=== PATIENT | male | born 1940 | race Caucasian/White ===

== ENCOUNTER 2018-05-29 06:30 | Day surgery (SDC) | payer MEDICARE, BC ==
[~2018-05-29 06:30] MED LIST: Lactated Ringers 1,000 ML IV SCH
[2018-05-29] MEDS ORDERED: fentaNYL 100 MCG/2 ML SDV ONE (07:31)
[2018-05-29] MEDS ORDERED: Propofol 200 MG/20 ML SDV ONE (07:31)
--- NOTE | 2018-05-29 08:48 | OR ---
DATE OF PROCEDURE: 05/29/2018 PREOPERATIVE DIAGNOSIS: History of colon polyps. POSTOPERATIVE DIAGNOSES: Small hepatic flexure polyp, history of colon polyps. PROCEDURE PERFORMED: Colonoscopy to the cecum with biopsy resection of small hepatic flexure polyp. ANESTHESIA: IV anesthesia with monitored anesthesia care. INDICATION: This 78-year-old white male is referred for a colonoscopy because of a history of colon polyps. He says his last colonoscopic exam was done 5 years ago. I counseled him for the procedure, including risks and alternatives, and he gave his informed consent to proceed. DESCRIPTION OF PROCEDURE: The patient was placed in the left lateral decubitus position. IV anesthesia was administered by the Anesthesia Service. Time-out was held. A rectal exam was performed, which was unremarkable. The flexible video Olympus colonoscope was introduced through his anus, up his rectum and out his colon, all the way to the cecum. Once the cecum was reached, the scope was slowly withdrawn examining the mucosa throughout. At the hepatic flexure, we saw a small polyp, which was removed with a few bites of the biopsy forceps. The scope was withdrawn further with no other lesions noted. The scope was retroflexed in the rectum with the distal rectum appearing unremarkable, except for some minor hemorrhoidal tissue. The scope was straightened and removed. He tolerated the procedure well. Ranyd Sahni MD /[id number]
[2018-05-29 09:10] VITALS: BP 143/92
== END 2018-05-29 10:22 | disposition home or self-care (01) ==
LOC: JP.SDS 06:30
PROVIDERS: ATTEND Surgery
DX: Z12.11 Encounter for screening for malignant neoplasm of colon (principal); D12.3 Benign neoplasm of transverse colon; Z86.010 Personal history of colon polyps; Z79.899 Other long term (current) drug therapy; Z88.5 Allergy status to narcotic agent; Z91.041 Radiographic dye allergy status
CPT/HCPCS: 45380; J2704; J3010; J7120

== ENCOUNTER 2021-03-24 20:22 | Emergency (ER) | payer MEDICARE, BC ==
--- NOTE | 2021-03-24 21:16 | EDM.PDOC ---
ED HPI GENERAL MEDICAL PROBLEM - General Chief Complaint: Neurological Problem Stated Complaint: SPEACH TROUBLE Time Seen by Provider: 03/24/21 21:15 Source of Information: Reports: Patient History Limitations: Reports: No Limitations - History of Present Illness INITIAL COMMENTS - FREE TEXT/NARRATIVE: Patient presents to the ER tonight due to episode of speech change/inability to speak/get the words out. He was over at his son's house for dinner and reports having drank a beer. He states they were sitting around talking and all the sudden he wanted to say something about the neighbor but nothing would come out and he noted he was drooling/salivating. States that symptoms lasted about 30 seconds or less--then completely resolved. Denies any other associated symptoms to include no one-sided weakness, ELMORE, dizzy/lightheadedness, CP/discomfort, SOB/difficulty breathing, N/V, visual changes or symptoms otherwise. He was noted upon arrival to be ambulatory in a normal fashion/manner. He states that he has noted over the last week some mild dragging of his left foot that has increased in nature. He states he plays pickle ball/tennis and normally wears out his left shoe before the right but over the last week he noticed his foot dragging more than normal. He states he used to take an aspirin but quit about a year or so ago--he does state his PCM was not happy about this and would like him to take it but he quit due to bruising PMH--gout, HTN Meds--allopurinol, lisionpril, atenolol Allergies--morphine, iodine Onset: Today, Sudden Duration: Resolved Prior to Arrival - Related Data Allergies Allergy/AdvReac Type Severity Reaction Status Date / Time morphine Allergy Mild Swelling Verified 03/24/21 20:36 iodine Allergy Rash Verified 05/29/18 06:57 ivp dye Allergy Mild rash and Uncoded 05/29/18 06:57 hives Home Meds: Home Meds Atenolol [Tenormin] 50 mg PO DAILY 08/13/13 [History] Lisinopril [Zestril] 10 mg PO DAILY 08/13/13 [History] allopurinoL [Zyloprim] 150 mg PO DAILY 08/13/13 [History] Past Medical History HEENT History: Reports: Cataract, Glaucoma, Impaired Vision, Other (See Below) Other HEENT History: broken nose Cardiovascular History: Reports: Heart Murmur, Hypertension Gastrointestinal History: Reports: Colon Polyp Genitourinary History: Reports: Prostate Disorder, Renal Calculus Musculoskeletal History: Reports: Gout, Other (See Below) Other Musculoskeletal History: cortisone shots and PT for right shoulder Neurological History: Reports: Concussion, Other (See Below) 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 Oncologic (Cancer) History: Reports: Basal Cell Carcinoma, Squamous Cell Carcinoma Dermatologic History: Reports: Other (See Below) Other Dermatologic History: basel and squameous - Infectious Disease History Infectious Disease History: Reports: Chicken Pox, Measles, Mumps - Past Surgical History Cardiovascular Surgical History: Reports: None GI Surgical History: Reports: Colonoscopy, Polypectomy, Other (See Below) Other GI Surgeries/Procedures: hemorroids Male Surgical History: Reports: TURP-Transurethral Resection of Prostate Neurological Surgical History: Reports: Lumbar Spine Musculoskeletal Surgical History: Reports: None Oncologic Surgical History: Reports: Other (See Below) Other Oncologic Surgeries/Procedures: skin Social & Family History - Family History Family Medical History: No Pertinent Family History - Tobacco Use Tobacco Use Status *Q: Never Tobacco User - Caffeine Use Caffeine Use: Reports: Coffee ED ROS GENERAL - Review of Systems Review Of Systems: Comprehensive ROS is negative, except as noted in HPI. Neurological: Reports: Tremors (reports having right hand tremor for over a year ), Trouble Speaking (tonight for about 30 seconds), Difficulty Walking (chronic issue of unknown duration-dragging of left leg/wearing out shoe but over the last week has been increased in nature). Denies: Confusion, Dizziness, Headache, Numbness, Paresthesia, Pre-Existing Deficit, Seizure, Syncope, Tingling ED EXAM, NEURO - Physical Exam Exam: See Below Exam Limited By: No Limitations General Appearance: Alert, WD/WN, No Apparent Distress Eye Exam: Bilateral Eye: EOMI, Normal Inspection, PERRL Ears: Normal External Exam Nose: Normal Inspection Throat/Mouth: Normal Inspection, Normal Lips, Normal Oropharynx, Normal Voice, No Airway Compromise Head Exam: Atraumatic, Normocephalic Neck: Normal Inspection, Supple, Non-Tender, Full Range of Motion. No: Carotid Bruit Respiratory/Chest: No Respiratory Distress, Lungs Clear, Normal Breath Sounds Cardiovascular: Normal Peripheral Pulses, Regular Rate, Rhythm, No Edema, No JVD, No Murmur GI/Abdominal: Normal Bowel Sounds, Soft, Non-Tender (Male) Exam: Deferred Rectal (Males) Exam: Deferred Neurological: Alert, Normal Mood/Affect, Normal Dorsiflexion, CN II-XII Intact, Normal Plantar Flexion, Normal Gait, No Motor/Sensory Deficits, Oriented x 3, Other (NIH=0, rhomberg neg, heel to larry neg, sensory grossly intact bilateral UE/LE, CN 2-12 intact) Back Exam: Normal Inspection, Full Range of Motion Extremities: Normal Inspection, Normal Range of Motion, No Pedal Edema, Normal Capillary Refill Psychiatric: Normal Affect, Normal Mood Skin Exam: Warm, Dry, Intact, Normal Color #1 Interpretation EKG Date: 03/24/21 Time: 21:22 (read at 2125, no STEMI) Rhythm: NSR Rate (Beats/Min): 74 [place]: Normal P-Wave: Enlarged (left atrial enlargement; AL-174) QRS: LBBB (QRS-148) ST-T: Normal QT: Normal (QT/QTc-442/491) Comparison: NA - No Prior EKG (telemetry strip from 05/29/18 noted for L-BBB thus not a new finding) Course - Vital Signs Text/Narrative:: 2129--previous records reviewed as available in the EMR. 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 f/u with PCM as discussed in the next 3-5 days Last Recorded V/S: Last Vital Signs Temp 97.7 F 03/24/21 20:48 Pulse 76 03/24/21 21:03 Resp 15 03/24/21 21:03 BP 131/74 03/24/21 21:03 Pulse Ox 97 03/24/21 21:03 - Orders/Labs/Meds Orders: Active Orders 24 hr Category Date Time Status EKG Documentation Completion [RC] ASDIRECTED Care 03/24/21 21:16 Active EKG 12 Lead [EK] Routine Ther 03/24/21 21:15 Ordered Labs: Laboratory Tests 03/24/21 03/24/21 Range/Units 21:20 21:20 WBC 6.9 (4.5-11.0) K/uL RBC 4.78 (4.30-5.90) M/uL Hgb 14.5 (12.0-15.0) g/dL Hct 45.2 (40.0-54.0) % MCV 95 (80-98) fL MCH 30 (27-31) pg MCHC 32 (32-36) % Plt Count 206 (150-400) K/uL Neut % (Auto) 76 H (36-66) % Lymph % (Auto) 16 L (24-44) % Yell % (Auto) 7 H (2-6) % Eos % (Auto) 0 L (2-4) % Baso % (Auto) 0 (0-1) % Sodium 144 (140-148) mmol/L Potassium 4.4 (3.6-5.2) mmol/L Chloride 104 (100-108) mmol/L Carbon Dioxide 25 (21-32) mmol/L Anion Gap 15.2 H (5.0-14.0) mmol/L BUN 26 H (7-18) mg/dL Creatinine 1.4 H (0.8-1.3) mg/dL Est Cr Clr Drug Dosing 44.19 mL/min Estimated GFR (MDRD) 49 L (>60) Glucose 120 H (74-106) mg/dL Calcium 9.4 (8.5-10.1) mg/dL Total Bilirubin 0.6 (0.2-1.0) mg/dL AST 30 (15-37) U/L ALT 30 (12-78) U/L Alkaline Phosphatase 95 (46-116) U/L Total Protein 7.2 (6.4-8.2) g/dL Albumin 4.2 (3.4-5.0) g/dL Globulin 3.0 (2.3-3.5) g/dL Albumin/Globulin Ratio 1.4 (1.2-2.2) Departure - Departure Time of Disposition: 21:58 Disposition: Home, Self-Care 01 Condition: Good Clinical Impression: TIA (transient ischemic attack), Hypertension, Mild dehydration - Discharge Information *PRESCRIPTION DRUG MONITORING PROGRAM REVIEWED*: Not Applicable *COPY OF PRESCRIPTION DRUG MONITORING REPORT IN PATIENT PITA: Not Applicable Instructions: Transient Ischemic Attack, [id number], Hypertension, Adult, Fczs-[id number], Dehydration, Elderly, [id number] Referrals: Lebron Salmeron MD [Primary Care Provider] - Forms: ED Department Discharge Additional Instructions: Call your family doctor tomorrow to schedule ER follow up care in the next 3-5 days--please note we do not make these appointments for you Consider restarting 1- baby aspirin (81mg tablet) daily due to today's symptoms and as you report your doctor has previously recommended Mild dehydration based on your kidney function test--it is recommended that you increased fluids/water especially when outside working Sepsis Event Note (ED) - Evaluation Sepsis Screening Result: No Definite Risk - Focused Exam Vital Signs: Vital Signs Temp Pulse Resp BP Pulse Ox 03/24/21 21:03 76 15 131/74 97 03/24/21 20:48 97.7 F 78 16 144/74 H 98 03/24/21 20:28 97.7 F 78 16 144/74 H 98 - My Orders Last 24 Hours: My Active Orders 03/24/21 21:15 EKG 12 Lead [EK] Routine 03/24/21 21:16 EKG Documentation Completion [RC] ASDIRECTED - Assessment/Plan Last 24 Hours: My Active Orders 03/24/21 21:15 EKG 12 Lead [EK] Routine 03/24/21 21:16 EKG Documentation Completion [RC] ASDIRECTED
[2021-03-24 21:57] VITALS: BP 118/71; PULSE 74
== END 2021-03-24 22:13 | disposition home or self-care (01) ==
LOC: JP.ED 20:22
DX: G45.9 Transient cerebral ischemic attack, unspecified (principal); I10 Essential (primary) hypertension; E86.0 Dehydration; M10.9 Gout, unspecified; Z79.899 Other long term (current) drug therapy; Z88.5 Allergy status to narcotic agent; Z91.048 Other nonmedicinal substance allergy status
CPT/HCPCS: 36415; 80053; 85025; 93005; 99285-25

== ENCOUNTER 2021-04-27 17:52 | Emergency (ER) | payer MEDICARE, BC ==
[2021-04-27] MEDS ORDERED: Lidocaine/Epineph/Tetracaine 3 ML Syringe TOP ONE (18:21)
[2021-04-27 18:25] VITALS: BP 147/78; PULSE 84
--- NOTE | 2021-04-27 18:30 | EDM.PDOC ---
ED HPI GENERAL MEDICAL PROBLEM - General Chief Complaint: Syncope Stated Complaint: MEDICAL Time Seen by Provider: 04/27/21 18:05 Source of Information: Reports: Patient, EMS, Family History Limitations: Reports: No Limitations - History of Present Illness INITIAL COMMENTS - FREE TEXT/NARRATIVE: 72-year-old male with known carotid artery disease, scheduled for carotid endarterectomy in 3 days was in [place] this morning for preoperative work-up, labs, EKG and physical. They then went shopping, it was a long day. When they got home they unloaded everything from the car and he was just opening a beer and talking to a neighbor when she kept asking him questions and he became nauseous and lightheaded and then fainted. Did not feel palpitations, headache, shortness of breath or peripheral weakness. He sustained a laceration to the lateral right eyebrow and a skin tear on his right elbow but neurologically normalized by the time EMS arrived. Onset: Sudden Duration: Hour(s): (Within the last hour) Associated Symptoms: Reports: Malaise, Syncope, Weakness. Denies: Confusion, Chest Pain, Cough, Fever/Chills, Headaches, Nausea/Vomiting, Shortness of Breath - Related Data Allergies Allergy/AdvReac Type Severity Reaction Status Date / Time morphine Allergy Mild Swelling Verified 04/27/21 18:03 Iodinated Contrast Media Allergy Hives Verified 04/27/21 18:03 iodine Allergy Rash Verified 04/27/21 18:03 Home Meds: Home Meds Lisinopril [Zestril] 10 mg PO DAILY 08/13/13 [History] allopurinoL [Zyloprim] 150 mg PO DAILY 08/13/13 [History] Aspirin [Adult Low Dose Aspirin EC] 81 mg PO DAILY 04/27/21 [History] amLODIPine [Norvasc] 10 mg PO DAILY 04/27/21 [History] Past Medical History HEENT History: Reports: Cataract, Glaucoma, Impaired Vision, Other (See Below) Other HEENT History: broken nose Cardiovascular History: Reports: Heart Murmur, Hypertension Gastrointestinal History: Reports: Colon Polyp Genitourinary History: Reports: Prostate Disorder, Renal Calculus Musculoskeletal History: Reports: Gout, Other (See Below) Other Musculoskeletal History: cortisone shots and PT for right shoulder Neurological History: Reports: Concussion, TIA, Other (See Below) 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 Oncologic (Cancer) History: Reports: Basal Cell Carcinoma, Squamous Cell Carcinoma Dermatologic History: Reports: Other (See Below) Other Dermatologic History: basel and squameous - Infectious Disease History Infectious Disease History: Reports: Chicken Pox, Measles, Mumps - Past Surgical History Cardiovascular Surgical History: Reports: None GI Surgical History: Reports: Colonoscopy, Polypectomy, Other (See Below) Other GI Surgeries/Procedures: hemorroids Male Surgical History: Reports: TURP-Transurethral Resection of Prostate Neurological Surgical History: Reports: Lumbar Spine Musculoskeletal Surgical History: Reports: None Oncologic Surgical History: Reports: Other (See Below) Other Oncologic Surgeries/Procedures: skin Social & Family History - Family History Family Medical History: No Pertinent Family History - Tobacco Use Tobacco Use Status *Q: Former Tobacco User Used Tobacco, but Quit: Yes Month/Year Tobacco Last Used: 1971 - Caffeine Use Caffeine Use: Reports: Coffee - Alcohol Use Number of Drinks Per Day: 1 - Recreational Drug Use Recreational Drug Use: No ED ROS GENERAL - Review of Systems Review Of Systems: See Below Constitutional: Reports: Malaise. Denies: Fever, Chills HEENT: Denies: Vision Change Respiratory: Denies: Shortness of Breath GI/Abdominal: Denies: Nausea, Vomiting Skin: Reports: Other (Laceration of the lateral right eyebrow with periorbital bruising) Neurological: Denies: Headache Psychiatric: Reports: No Symptoms - Physical Exam Exam: See Below Exam Limited By: No Limitations General Appearance: Alert, No Apparent Distress Eye Exam: Right Eye: Periorbital Changes (Patient had significant periorbital ecchymosis especially in the upper eyelid on the right side with a 2 cm laceration just lateral to the eyebrow.), Bilateral Eye: EOMI (No pain with movement of the eye), PERRL, Other (No vision changes, all objective findings are external to the eye) Head Exam: Other (As above) Neck: Supple, Non-Tender Respiratory/Chest: No Respiratory Distress, Lungs Clear Cardiovascular: Regular Rate, Rhythm Neuro Exam (Abbreviated): Alert, Oriented, No Motor/Sensory Deficits Psychiatric: Normal Affect, Normal Mood Skin Exam: Warm, Dry Course - Vital Signs Last Recorded V/S: Last Vital Signs Temp 97.9 F 04/27/21 17:59 Pulse 84 04/27/21 17:59 Resp 14 06/14/21 17:59 BP 147/78 H 04/27/21 17:59 Pulse Ox 97 04/27/21 17:59 - Orders/Labs/Meds Meds: Medications Discontinued Medications Generic Name Dose Route Start Last Admin Trade Name Iza PRN Reason Stop Dose Admin Diphtheria/Tetanus/Acell Pertussis 0.5 ml 04/27/21 19:09 04/27/21 19:15 Diphtheria,Pertussis(Acell),Tetanus Vaccine 0.5 Ml Syringe IM 04/27/21 19:10 0.5 ml .ONCE ONE Administration Ibuprofen 600 mg 04/27/21 19:09 04/27/21 19:14 Ibuprofen 600 Mg Tab PO 04/27/21 19:10 600 mg ONETIME ONE Administration - Re-Assessments/Exams Free Text/Narrative Re-Assessment/Exam: 04/27/21 19:13 Patient was given a Tdap booster, let was applied to the laceration and two 5-0 Ethilon sutures were used to approximate the edges. Unfortunately the patient developed a headache during the procedure, and was given 600 mg of ibuprofen and a CT of the head was ordered. 04/27/21 20:27 Patient remained stable in the emergency room, CT of the head was negative. Sutures can be removed in 5 days, he is going to continue with ice to the area and increase activity as tolerated, he should be able to keep his appointment for for his surgery. He is going to inform his vascular surgeon tomorrow for syncopal episode. Departure - Departure Time of Disposition: 20:44 Disposition: Home, Self-Care 01 Clinical Impression: Vasovagal syncope Laceration of right eyebrow Qualifiers: Encounter type: initial encounter Qualified Code(s): S01.111A - Laceration without foreign body of right eyelid and periocular area, initial encounter - Discharge Information Instructions: Laceration Care, Adult, Syncope, [id number] Referrals: Lebron Salmeron MD [Primary Care Provider] - Forms: ED Department Discharge Care Plan Goals: Drink lots of fluids, avoid alcohol tonight, and continue your regular medications. Call your vascular surgeon tomorrow to update him on what happened, sutures should be removed in 5 days. Unless new symptoms develop, I do not think this will affect your surgery date. Sepsis Event Note (ED) - Evaluation Sepsis Screening Result: No Definite Risk - Focused Exam Vital Signs: Vital Signs Temp Pulse Resp BP Pulse Ox 04/27/21 17:59 97.9 F 84 14 147/78 H 97
[2021-04-27] MEDS ORDERED: Ibuprofen 600 MG Tab PO ONE (19:09)
[2021-04-27] MEDS ORDERED: Diphtheria,Pertussis(Acell),Tetanus Vaccine 0.5 ML Syringe IM ONE (19:09)
--- NOTE | 2021-04-27 20:25 | CRLCT ---
INDICATION: Fall. Injury TECHNIQUE: CT head without contrast. COMPARISON: 04/02/2021 FINDINGS: Again seen is age related cortical atrophy and stable ventriculomegaly. There is no mass effect or midline shift. 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 There is no loss of dahl-white differentiation. There is no evidence of an acute intracranial hemorrhage. No acute calvarial fracture is seen. There is right supraorbital and periorbital soft tissue swelling. The visualized paranasal sinuses and mastoid air cells are clear. The visualized orbits are grossly unremarkable. IMPRESSION: No evidence of an acute intracranial hemorrhage, mass effect or loss of dahl-white differentiation. Stable appearance of the brain. Right supraorbital and periorbital soft tissue swelling. Dictated by Otoniel Prasad MD @ 04/27/2021 8:22:30 PM Please note that all CT scans at this facility use dose modulation, iterative reconstruction, and/or weight-based dosing when appropriate to reduce radiation dose to as low as reasonably achievable. Dictated by: Otoniel Prasad MD @ 04/27/2021 20:24:17 (Electronically Signed)
== END 2021-04-27 20:44 | disposition home or self-care (01) ==
LOC: JP.ED 17:52
DX: S01.111A Laceration without foreign body of right eyelid and periocular area, initial encounter (principal); R55 Syncope and collapse; I10 Essential (primary) hypertension; Z79.82 Long term (current) use of aspirin; Z79.899 Other long term (current) drug therapy; Z88.6 Allergy status to analgesic agent; Z91.041 Radiographic dye allergy status; Z23 Encounter for immunization; W26.8XXA Contact with other sharp object(s), not elsewhere classified, initial encounter
CPT/HCPCS: 12011; 70450; 90471; 90715; 99284; A9270

== ENCOUNTER 2021-05-09 17:57 | Emergency (ER) | payer MEDICARE, BC ==
[2021-05-09] MEDS ORDERED: Sodium Chloride 0.9% 10 ML Syringe FLUSH PRN (18:47)
[2021-05-09] MEDS ORDERED: Sodium Chloride 0.9% 1,000 ML IV SCH (19:00)
--- NOTE | 2021-05-09 19:09 | EDM.PDOC ---
ED HPI GENERAL MEDICAL PROBLEM - General Chief Complaint: Cardiovascular Problem Stated Complaint: NUMBNESS IN FINGERS Time Seen by Provider: 05/09/21 18:19 Source of Information: Reports: Patient, Old Records History Limitations: Reports: No Limitations - History of Present Illness INITIAL COMMENTS - FREE TEXT/NARRATIVE: Janusz is a 81-year-old male who presents to the ED with his for evaluation of acute onset of near syncope associated with numbness in the left second, third, and fourth fingers while at [employer] today. The patient states that he felt somewhat gassy and had an episode of eructation that possibly precipitated his feeling of lightheadedness, dizziness, and the numbness and tingling. The patient did have some nausea. He denies any vision changes. The patient had been standing during part of the sermon when this occurred. He did sit down and started to feel better but his said he was pale and diaphoretic. He denied any tachycardia or palpitations. It was suspected that he had an episode of vasovagal syncope back on 04/27/2021 when he had a episode causing him to "face plant in the ground" resulting in periorbital injury and a laceration above the right eye. The patient recently underwent a right endarterectomy on 04/29/2021 at [facility]. He was seen on 05/02/2021 for recurrence of symptoms similar to today and was [place] air care [place] to [facility] for admission. 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 These were felt to be embolic in nature. Patient was evaluated by neurology who did CT angio of the head and neck which shows postoperative changes of the right carotid endarterectomy without evidence for complication or atheromatous plaques in the left vertebral artery which accounts for least mild stenosis otherwise the remainder of the circulation appeared to be without any significant stenosis below Domínguez was intact. MRI of the brain without contrast showed multiple punctate presumed late acute or early subacute infarcts involving the right frontal, parietal, and posterior temporal lobes and an MRA was ordered showing postoperative changes again in the right carotid artery with no evidence for hemodynamically significant carotid or vertebral artery stenosis and mild irregularity in the right common carotid artery likely postoperative. After full neurologic evaluation, they signed off on him stating he was suitable for discharge home. Patient is on antiplatelet therapy with Plavix and a baby aspirin. The patient was seen by his primary care provider, Dr. Salmeron on 05/08/2021 for hospitalization follow-up. Dr. Salmeron increase his amlodipine from 5 mg to 10 mg yesterday to compensate for the hospital discontinuing the patient's lisinopril. The patient also reports that he really has not been drinking much water since getting out of the hospital. He took a bottle of water with his tackle box to go fishing this morning but did not touch it all day. Early the patient's paresthesias of the left hand are resolved. Have nursing check an orthostatic blood pressure series on him. - Related Data Allergies Allergy/AdvReac Type Severity Reaction Status Date / Time morphine Allergy Mild Swelling Verified 05/09/21 18:16 Iodinated Contrast Media Allergy Hives Verified 05/09/21 18:16 iodine Allergy Rash Verified 05/09/21 18:16 Home Meds: Home Meds allopurinoL [Zyloprim] 150 mg PO DAILY 08/13/13 [History] Aspirin [Adult Low Dose Aspirin EC] 81 mg PO DAILY 04/27/21 [History] amLODIPine [Norvasc] 10 mg PO DAILY 04/27/21 [History] Clopidogrel [Plavix] 1 tab PO DAILY 05/09/21 [History] Past Medical History HEENT History: Reports: Cataract, Glaucoma, Impaired Vision, Other (See Below) Other HEENT History: broken nose Cardiovascular History: Reports: Heart Murmur, Hypertension Gastrointestinal History: Reports: Colon Polyp Genitourinary History: Reports: Prostate Disorder, Renal Calculus Musculoskeletal History: Reports: Gout, Other (See Below) Other Musculoskeletal History: cortisone shots and PT for right shoulder Neurological History: Reports: Concussion, TIA, Other (See Below) 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 Oncologic (Cancer) History: Reports: Basal Cell Carcinoma, Squamous Cell Carcinoma Dermatologic History: Reports: Other (See Below) Other Dermatologic History: basel and squameous - Infectious Disease History Infectious Disease History: Reports: Chicken Pox, Measles, Mumps - Past Surgical History Cardiovascular Surgical History: Reports: None GI Surgical History: Reports: Colonoscopy, Polypectomy, Other (See Below) Other GI Surgeries/Procedures: hemorroids Male Surgical History: Reports: TURP-Transurethral Resection of Prostate Neurological Surgical History: Reports: Lumbar Spine Musculoskeletal Surgical History: Reports: None Oncologic Surgical History: Reports: Other (See Below) Other Oncologic Surgeries/Procedures: skin Social & Family History - Family History Family Medical History: No Pertinent Family History - Tobacco Use Tobacco Use Status *Q: Never Tobacco User - Caffeine Use Caffeine Use: Reports: Coffee ED ROS GENERAL - Review of Systems Review Of Systems: See Below Constitutional: Reports: Weakness (Generalized), Diaphoresis HEENT: Reports: No Symptoms Respiratory: Reports: No Symptoms Cardiovascular: Reports: No Symptoms Endocrine: Reports: No Symptoms GI/Abdominal: Reports: Distension (Abdominal distention with eructation.), Nausea : Reports: No Symptoms Musculoskeletal: Reports: No Symptoms Skin: Reports: No Symptoms Neurological: Reports: Dizziness (Lightheadedness), Paresthesia (Left second, third, and fourth fingers. Similar to when he had his stroke.), Syncope (Near syncope) Psychiatric: Reports: Anxiety Hematologic/Lymphatic: Reports: No Symptoms Immunologic: Reports: No Symptoms ED EXAM, GENERAL - Physical Exam Exam: See Below Exam Limited By: No Limitations General Appearance: Alert, No Apparent Distress, Anxious Eye Exam: Bilateral Eye: EOMI, PERRL Throat/Mouth: Normal Inspection, Normal Oropharynx, Normal Voice, No Airway Compromise Head: Normocephalic, Other (Ecchymosis in the right periorbital space secondary to his fall on 04/27/2021) Neck: Supple, Non-Tender, Full Range of Motion, Other (Healing surgical scar from a right sided endarterectomy). No: Carotid Bruit Respiratory/Chest: No Respiratory Distress, Lungs Clear, Normal Breath Sounds Cardiovascular: Normal Peripheral Pulses, Regular Rate, Rhythm, No Murmur Peripheral Pulses: 2+: Radial (L), Radial (R), Posterior Tibial (L), Posterior Tibial (R) GI/Abdominal: Normal Bowel Sounds, Soft, Non-Tender, Distended (Tympany to percussion throughout the upper abdomen). No: Guarding, Rebound Back Exam: Normal Inspection, Full Range of Motion Extremities: Normal Inspection, Normal Range of Motion Neurological: Alert, Oriented, CN II-XII Intact, Normal Cognition, No Motor/Sensory Deficits Psychiatric: Normal Affect, Normal Mood, Anxious Skin Exam: Warm, Dry, Intact, Ecchymosis (Ecchymosis around the right eye and on the left anterior neck around the surgical wound), Wound/Incision (The right endarterectomy wound is clean, dry, intact) Lymphatic: No Adenopathy #1 Interpretation EKG Date: 05/09/21 Time: 19:12 Rhythm: NSR Rate (Beats/Min): 61 Crestline: LAD-Left Crestline Deviation P-Wave: Enlarged (Left atrial enlargement) QRS: LBBB ST-T: Other (Repolarization abnormality secondary to left bundle branch block) QT: Prolonged Comparison: No Change Course - Vital Signs Last Recorded V/S: Last Vital Signs Temp 36.4 C 05/09/21 18:25 Pulse 71 05/09/21 18:25 Resp 14 05/09/21 18:25 BP 142/78 H 05/09/21 18:25 Pulse Ox 100 05/09/21 18:25 Orthostatic Blood Pressure [ 142/77 Standing] Orthostatic Blood Pressure [ 130/83 Sitting] Orthostatic Blood Pressure [ 151/82 Supine] - Orders/Labs/Meds Orders: Active Orders 24 hr Category Date Time Status EKG Documentation Completion [RC] ASDIRECTED Care 05/09/21 18:48 Active Head wo Cont [CT] Stat Exams 05/09/21 18:47 Taken Sodium Chloride 0.9% [Normal Saline] 1,000 ml Med 05/09/21 19:00 Active IV ASDIRECTED Sodium Chloride 0.9% [Saline Flush] Med 05/09/21 18:47 Active 10 ml FLUSH ASDIRECTED PRN Saline Lock Insert [OM.PC] Routine Oth 05/09/21 18:47 Ordered EKG 12 Lead [EK] Routine Ther 05/09/21 18:47 Ordered Medication Orders Sodium Chloride (Normal Saline) 1,000 mls @ 999 mls/hr IV ASDIRECTED CLARA Last Admin: 05/09/21 19:12 Dose: 999 mls/hr Documented by: ALMAZ Sodium Chloride (Sodium Chloride 0.9% 10 Ml Syringe) 10 ml FLUSH ASDIRECTED PRN PRN Reason: Keep Vein Open Labs: Laboratory Tests 05/09/21 05/09/21 05/09/21 Range/Units 19:04 19:04 19:04 WBC 6.9 (4.5-11.0) K/uL RBC 4.30 (4.30-5.90) M/uL Hgb 13.2 (12.0-15.0) g/dL Hct 40.5 (40.0-54.0) % MCV 94 (80-98) fL MCH 31 (27-31) pg MCHC 33 (32-36) % Plt Count 200 (150-400) K/uL Neut % (Auto) 74.0 H (36-66) % Lymph % (Auto) 15.0 L (24-44) % Dixie % (Auto) 8.0 H (2-6) % Eos % (Auto) 2.6 (2-4) % Baso % (Auto) 0.4 (0-1) % PT 10.8 (9.5-12.0) sec INR 0.99 (0.80-1.20) APTT 23.8 L (27.0-36.0) sec Sodium 141 (140-148) mmol/L Potassium 4.1 (3.6-5.2) mmol/L Chloride 103 (100-108) mmol/L Carbon Dioxide 29 (21-32) mmol/L Anion Gap 9.5 (5.0-14.0) mmol/L BUN 23 H (7-18) mg/dL Creatinine 1.2 (0.8-1.3) mg/dL Est Cr Clr Drug Dosing 49.92 mL/min Estimated GFR (MDRD) 58 L (>60) Glucose 128 H (74-106) mg/dL Calcium 8.8 (8.5-10.1) mg/dL Total Bilirubin 0.6 (0.2-1.0) mg/dL AST 28 (15-37) U/L ALT 46 (12-78) U/L Alkaline Phosphatase 115 (46-116) U/L Total Protein 6.7 (6.4-8.2) g/dL Albumin 3.7 (3.4-5.0) g/dL Globulin 3.0 (2.3-3.5) g/dL Albumin/Globulin Ratio 1.2 (1.2-2.2) Meds: Medications Generic Name Dose Route Start Last Admin Trade Name Freq PRN Reason Stop Dose Admin Sodium Chloride 1,000 mls @ 999 mls/hr 05/09/21 19:00 05/09/21 19:12 Normal Saline IV 999 mls/hr ASDIRECTED CLARA Administration Sodium Chloride 10 ml 05/09/21 18:47 Sodium Chloride 0.9% 10 Ml Syringe FLUSH ASDIRECTED PRN Keep Vein Open - Re-Assessments/Exams Free Text/Narrative Re-Assessment/Exam: 05/09/21 19:39 I reviewed the patient's EKG showing normal sinus rhythm with a rate of 61 bpm and a left bundle branch block. The EKG remains unchanged from previous exams. I reviewed the patient's labs with a CBC showing a hemoglobin of 13.2 with a hematocrit of 40.5, leukocyte count of 6.9 with a normal differential, and platelet count of 200,000. The patient's comprehensive metabolic panel is only significant for a BUN of 23 with a creatinine 1.2. His GFR is calculated at 58. The patient's PT and PTT are both normal. Based on the comprehensive metabolic panel, the patient is somewhat dehydrated. A CT of the brain without contrast was performed demonstrating no evidence for acute bleed, mass, or midline shift. There is evidence for diffuse white matter hypodensity in the periventricular space consistent with small vessel disease. In addition there is age-related atrophy. 05/09/21 20:07 I discussed the case with Dr. Adair from [facility] stroke service who is familiar with the patient from his recent hospitalization. He inquired if we had the ability to do an emergent MRI which we unfortunately do not have the capacity to do. He recommended transferring the patient back to [facility] with the plan for a direct admission to the hospitalist service and obtaining an MRI when he arrives there. We will arrange for transport of the patient to [facility] via ground ambulance. The patient is vitally stable at this time and does not require any special needs. Was discussed with the patient and his who were both in agreement with this plan. Departure - Departure Time of Disposition: 20:10 Disposition: DC/Tfer to Acute Hospital 02 Reason for Transfer *Q: Other (Patient symptoms have resolved) Clinical Impression: TIA (transient ischemic attack), Paresthesias in left hand Referrals: Lebron Salmeron MD [Primary Care Provider] - Forms: ED Department Discharge Sepsis Event Note (ED) - Evaluation Sepsis Screening Result: No Definite Risk - Focused Exam Vital Signs: Vital Signs Temp Pulse Resp BP Pulse Ox 05/09/21 18:25 36.4 C 71 14 142/78 H 100 05/09/21 18:10 36.2 C 65 14 142/78 H 100 - Problem List & Annotations (1) TIA (transient ischemic attack) SNOMED Code(s): 817731115 Code(s): G45.9 - TRANSIENT CEREBRAL ISCHEMIC ATTACK, UNSPECIFIED Status: Acute Priority: High Current Visit: Yes (2) Paresthesias in left hand SNOMED Code(s): 774621806 Code(s): R20.2 - PARESTHESIA OF SKIN Status: Acute Priority: High Current Visit: Yes - Problem List Review Problem List Initiated/Reviewed/Updated: Yes - My Orders Last 24 Hours: My Active Orders 05/09/21 18:47 Head wo Cont [CT] Stat Sodium Chloride 0.9% [Saline Flush] 10 ml FLUSH ASDIRECTED PRN Saline Lock Insert [OM.PC] Routine EKG 12 Lead [EK] Routine 05/09/21 18:48 EKG Documentation Completion [RC] ASDIRECTED 05/09/21 19:00 Sodium Chloride 0.9% [Normal Saline] 1,000 ml IV ASDIRECTED - Assessment/Plan Last 24 Hours: My Active Orders 05/09/21 18:47 Head wo Cont [CT] Stat Sodium Chloride 0.9% [Saline Flush] 10 ml FLUSH ASDIRECTED PRN Saline Lock Insert [OM.PC] Routine EKG 12 Lead [EK] Routine 05/09/21 18:48 EKG Documentation Completion [RC] ASDIRECTED 05/09/21 19:00 Sodium Chloride 0.9% [Normal Saline] 1,000 ml IV ASDIRECTED
--- NOTE | 2021-05-09 20:44 | CRLCT ---
For Patients: As a result of the Century Cures Act, medical imaging exams and procedure reports are released immediately into your electronic medical record. You may view this report before your referring provider. If you have questions, please contact your health care provider. DATE: 05/09/2021 CLINICAL HISTORY: Patient with lightheadedness, recent stroke and endarterectomy. TECHNIQUE: Standard CT scanning of the head was performed. COMPARISON: 04/27/2021 FINDINGS: There is no intracranial hemorrhage. There is an old lacunar infarct in the right caudate head and anterior limb of the internal capsule. There is no territorial infarction. There are moderate microangiopathic changes. There is diffuse parenchymal volume loss. There is no mass effect or midline shift. The calvarium is unremarkable. The orbits are unremarkable. The paranasal sinuses are unremarkable. The mastoid air cells are unremarkable. The soft tissues are unremarkable. IMPRESSION: 1. No intracranial hemorrhage or territorial infarction. 2. Old lacunar infarct in the right caudate head and anterior limb of the internal capsule. 3. Moderate microangiopathic changes and diffuse parenchymal volume loss. Please note that all CT scans at this facility use dose modulation, iterative reconstruction, and/or weight-based dosing when appropriate to reduce radiation dose to as low as reasonably achievable. Dictated by Mala Blackwell MD @ 05/09/2021 8:42:[address] Mala Blackwell @ May 09 2021 8:42PM
[2021-05-09 21:43] VITALS: BP 149/84; PULSE 75
== END 2021-05-09 22:35 ==
LOC: JP.ED 17:57
DX: G45.9 Transient cerebral ischemic attack, unspecified (principal); R20.2 Paresthesia of skin; I10 Essential (primary) hypertension; M10.9 Gout, unspecified; Z88.5 Allergy status to narcotic agent; Z91.041 Radiographic dye allergy status; Z79.82 Long term (current) use of aspirin; Z79.02 Long term (current) use of antithrombotics/antiplatelets; Z79.899 Other long term (current) drug therapy
CPT/HCPCS: 36415; 70450; 80053; 85025; 85610; 85730; 93005; 93010; 99285; J7030

== ENCOUNTER 2022-07-22 08:01 | Day surgery (SDC) | payer MEDICARE, BC ==
[2022-07-22] MEDS ORDERED: Sodium Chloride 0.9% 10 ML Syringe FLUSH ONE (08:30)
[2022-07-22 09:46] VITALS: BP 162/91; PULSE 63
== END 2022-07-22 09:48 | disposition home or self-care (01) ==
LOC: JP.SDS 08:01
PROVIDERS: ATTEND Ophthalmology
DX: H25.11 Age-related nuclear cataract, right eye (principal); I10 Essential (primary) hypertension; I42.9 Cardiomyopathy, unspecified; Z86.73 Personal history of transient ischemic attack (TIA), and cerebral infarction without residual deficits
CPT/HCPCS: 66984; J3490

== ENCOUNTER 2023-06-30 08:02 | Day surgery (SDC) | payer MEDICARE, BC ==
[~2023-06-30 08:02] MED LIST changes: -Lactated Ringers 1,000 ML IV SCH; +Propofol 200 MG/20 ML SDV ONE; +fentaNYL 50 MCG/ML SDV ONE
[2023-06-30] MEDS ORDERED: Sodium Chloride 0.9% 1,000 ML IV SCH (08:30)
[2023-06-30 10:06] VITALS: PULSE 56
[2023-06-30 11:01] VITALS: BP 127/79
== END 2023-06-30 11:01 | disposition home or self-care (01) ==
LOC: JP.SDS 08:02
PROVIDERS: ATTEND Surgery
DX: Z12.11 Encounter for screening for malignant neoplasm of colon (principal); K57.30 Diverticulosis of large intestine without perforation or abscess without bleeding; I10 Essential (primary) hypertension; I42.9 Cardiomyopathy, unspecified; M10.9 Gout, unspecified; R91.1 Solitary pulmonary nodule; I65.29 Occlusion and stenosis of unspecified carotid artery; Z86.010 Personal history of colon polyps; Z86.73 Personal history of transient ischemic attack (TIA), and cerebral infarction without residual deficits; Z91.041 Radiographic dye allergy status; Z88.5 Allergy status to narcotic agent; Z88.8 Allergy status to other drugs, medicaments and biological substances
CPT/HCPCS: G0105; J2704; J3010; J7030

== ENCOUNTER 2023-09-06 08:39 | Emergency (ER) | payer MEDICARE, BC ==
[2023-09-06] MEDS ORDERED: Sodium Chloride 0.9% 1,000 ML IV SCH (09:15)
[2023-09-06 09:24] LABS: BASOPHILS ABSOLUTE AUTO 0.03 K/uL (0.00-0.10); BASOPHILS PERCENT AUTO 0.5 % (0.1-1.3); EOSINOPHILS ABSOLUTE AUTO 0.12 K/uL (0.00-0.40); EOSINOPHILS PERCENT AUTO 1.8 % (0.0-5.4); HEMATOCRIT 43.7 % (38.4-49.7); HEMOGLOBIN 14.7 g/dL (12.9-16.9); IMMATURE GRAN ABSOLUTE AUTO 0.03 K/uL (0.00-0.23); IMMATURE GRAN PERCENT AUTO 0.5 % (0.0-0.7); LYMPHOCYTES ABSOLUTE AUTO 0.82 K/uL (0.8-3.3); LYMPHOCYTES PERCENT AUTO 12.6 % (11.4-47.7); MEAN CORPUSCULAR HEMOGLOBIN 31.3 pg (31.6-35.5); MEAN CORPUSCULAR HGB CONC 33.6 g/dL (31.6-35.5); MONOCYTES ABSOLUTE AUTO 0.59 K/uL (0.20-0.90); NEUTROPHILS ABSOLUTE AUTO 4.93 K/uL (1.0-7.6); NEUTROPHILS PERCENT AUTO 75.6 % (40.0-78.1); PLATELET COUNT,PLT 126 K/uL (130-375); WHITE BLOOD CELL COUNT,WBC 6.5 K/uL (3.2-11.0)
[2023-09-06 09:45] LABS: A/G RATIO 1.2 (1.2-2.2); ALANINE AMINOTRANSFERASE,ALT 16 U/L (12-78); ALBUMIN 3.5 g/dL (3.4-5.0); ALKALINE PHOSPHATASE 102 U/L (46-116); ASPARTATE AMNIOTRANSFERASE,AST 21 U/L (15-37); BLOOD UREA NITROGEN,BUN 18 mg/dL (7-18); CALCIUM 8.7 mg/dL (8.5-10.1); CARBON DIOXIDE,CO2 29 mmol/L (21-32); CHLORIDE,CL 104 mmol/L (100-108); EST CRCL DRUG DOSING (CG) 57.93 mL/min; ESTIMATED GFR 76 mL/min (>60); GLUCOSE RANDOM 115 mg/dL (74-106); POTASSIUM,K 4.1 mmol/L (3.6-5.2); PROTEIN TOTAL,TP 6.4 g/dL (6.4-8.2); SODIUM,NA 139 mmol/L (140-148); TROPONIN I HIGH SENSITIVITY 23.3 pg/mL (<=60.3)
[2023-09-06 09:47] LABS: ANION GAP 10.1 mmol/L (5.0-14.0)
[2023-09-06 10:51] VITALS: BP 134/75; PULSE 64
[2023-09-06 11:05] LABS: APPEARANCE,URINE CLEAR (CLEAR); BILIRUBIN,URINE NEGATIVE (NEGATIVE); COLOR,URINE YELLOW (YELLOW); GLUCOSE,URINE NEGATIVE (NEGATIVE); KETONES,URINE NEGATIVE (NEGATIVE); LEUKOCYTE ESTERASE,URINE NEGATIVE (NEGATIVE); NITRITE,URINE NEGATIVE (NEGATIVE); OCCULT BLOOD,URINE NEGATIVE (NEGATIVE); PROTEIN,URINE TRACE mg/dL (NEGATIVE)
[2023-09-06 11:07] LABS: AMORPHOUS SEDIMENT,URINE NOT SEEN; BACTERIA,URINE RARE; EPITHELIAL CELLS,URINE RARE; MUCUS,URINE RARE; RBC,URINE 0-5 (0-5); WBC,URINE 0-5 (0-5)
== END 2023-09-06 12:05 | disposition home or self-care (01) ==
LOC: JP.ED 08:39
DX: E86.0 Dehydration (principal); I95.1 Orthostatic hypotension; I11.0 Hypertensive heart disease with heart failure; I10 Essential (primary) hypertension; M10.9 Gout, unspecified; Z79.899 Other long term (current) drug therapy; Z79.82 Long term (current) use of aspirin; Z88.5 Allergy status to narcotic agent; Z91.041 Radiographic dye allergy status; Z88.8 Allergy status to other drugs, medicaments and biological substances
CPT/HCPCS: 36415; 80053; 81001; 83735; 84484; 85025; 93005; 93010; 96360; 99283; 99285-25; J7030